=== PATIENT | female | born 1940 | race Caucasian/White ===

== ENCOUNTER → 2020-06-11 | Outpatient (CLI) | payer MEDICARE, OTHER ==
[2015-11-07 14:47] VITALS: BP 151/63
[~2020-06-11] MED LIST: ASPI-630 PO; COD1CAPS6 PO; LISI10TA2 PO; MELA3TAB4 PO; UBID30CA9 PO
--- NOTE | 2020-06-11 16:18 | RAD ---
EXAMINATION: XR HIP_RT 2-3VIEWS CLINICAL HISTORY: Right hip pain TECHNIQUE: XR HIP_RT 2-3VIEWS Number of Images/Views: 2 COMPARISON: 01/28/2016 FINDINGS: Marked axial joint space narrowing in the right hip with essentially douo-mw-gmbm contact and small m arginal osteophytes, progressed from prior study. No acute fracture. Multiple phleboliths. IMPRESSION: Advanced degenerative changes right hip. Electronically signed by: Paul Newby DO (06/11/2020 4:16 PM) [id number]
== END ==
LOC: PMG 14:50
PROVIDERS: ATTEND Family Medicine
DX: M16.11 Unilateral primary osteoarthritis, right hip (principal); I87.8 Other specified disorders of veins; M25.751 Osteophyte, right hip
CPT/HCPCS: 73502

== ENCOUNTER → 2021-05-05 | Outpatient (CLI) | payer MEDICARE, OTHER ==
[2015-11-07 14:47] VITALS: BP 151/63
[~2021-05-05] MED LIST changes: +LISI10TA16 PO; -LISI10TA2 PO
--- NOTE | 2021-05-05 14:55 | RAD ---
EXAM: AP pelvis, lateral view right hip DATE: 05/05/2021 1:07 PM INDICATION: Reason: HIP ARTHROPLASTY / Spl. Instructions: / History: . COMPARISON: No Prior FINDINGS: Changes of bilateral total hip arthroplasty, in good alignment without definite hardware complication . Components are well seated without periprosthetic lucency. Of note the distal left femoral stem is not included in the [id number]. No pubic symphysis or SI joint diastases. Moderate colonic stool c ontent. No evidence of acute fracture or dislocation. IMPRESSION: Right total hip arthroplasty, in good alignment without definite hardware complication or fracture. Electronically signed by: Davian Sprague MD (05/05/2021 2:52 PM) [id number]
== END ==
LOC: LAB 13:01
PROVIDERS: ATTEND Physician Assistant
DX: M25.551 Pain in right hip (principal); Z96.641 Presence of right artificial hip joint
CPT/HCPCS: 73501